=== PATIENT | male | born 1990 | race African-American/Black ===

== ENCOUNTER 2017-08-31 14:20 | Emergency (ER) | payer OTHER ==
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
[2017-08-31 14:31] VITALS: BP 129/77; PULSE 63; TEMP 98.6; BMI 30.2
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
== END 2017-08-31 16:01 | disposition home or self-care (01) ==
LOC: JER 14:20 → JERFT 14:20
PROC: 2W3CX1Z Immobilization of Right Lower Arm using Splint (ICD-10-PCS; principal; 2017-08-31)
DX: S62.320A Displaced fracture of shaft of second metacarpal bone, right hand, initial encounter for closed fracture (principal); V47.5XXA Car driver injured in collision with fixed or stationary object in traffic accident, initial encounter; Y93.89 Activity, other specified; Y92.410 Unspecified street and highway as the place of occurrence of the external cause
CPT/HCPCS: 73110-TC-RT-FY; 73130-TC-RT-FY; 99282-25